=== PATIENT | female | born 1960 | race Two or more races ===

== ENCOUNTER → 2023-07-17 06:00 | Outpatient (CLI) | payer OTHER ==
[~2023-07-17] VITALS: Ht 160 cm; Wt 69.9 kg
[~2023-07-17 06:00] MED LIST: ANASTROZOLE1 MG PO; ELIQUIS5 MG PO; GLIPIZIDE10 MG PO; INVOKAMET 150-1 EACH PO; TOPROL XL100 M1 PO; ZESTRIL10 M1 PO
== END | disposition home or self-care (01) ==
LOC: LAB 06:00 → SURH 07-22 10:30 → EDSTATUS 07-22 10:30 → SURH 07-22 19:00
PROVIDERS: ATTEND Colon & Rectal Surgery
DX: Z03.818 Encounter for observation for suspected exposure to other biological agents ruled out (principal); Z20.822 Contact with and (suspected) exposure to COVID-19; K92.1 Melena; K57.32 Diverticulitis of large intestine without perforation or abscess without bleeding

== ENCOUNTER 2023-10-14 10:22 | Inpatient (IN) | payer OTHER ==
[~2023-10-14] VITALS: Ht 160 cm; Wt 69.9 kg
[2023-10-21] MEDS ORDERED: ROSUVASTATIN CA20 MG (13:10)
[2023-10-21] MEDS ORDERED: DULOXETINE HCL30 MG (13:10)
[2023-10-21] MEDS ORDERED: ISOSORBIDE MONO10 MG (13:10)
[2023-10-21 16:33] LABS: HEMATOCRIT 38.7 % (36.0-45.00); MEAN CELL VOLUME 94.7 fL (80.00-100.00); MEAN CORPUSCULAR HEMOGLOBIN 31.8 pg (27.00-32.0); MEAN CORPUSCULAR HGB CONC 33.5 g/dl (32.0-36.0); PLATELET COUNT 227 K/uL (150-450); RED BLOOD COUNT 4.09 M/uL (4.00-6.00); RED CELL DISTRIBUTION WIDTH 13.3 % (11.5-14.5)
[2023-10-21 20:03] LABS: ABG PH 7.382 (7.35-7.45); ABG PO2 77.1 mmHg (80-100); ABG pCO2 37.8 mmHg (35-45); BASE EXCESS -2.7 mmol/l; BICARBONATE 21.9 mmol/l (23-25); SaO2 94.8 %; Tco2 23.1 mmol/l; allen test SATISFACTORY; o2 21 %; puncture site RADIAL RIGHT
[2023-10-22 06:45] LABS: HEMATOCRIT 35.5 % (36.0-45.00); HEMOGLOBIN 12.1 g/dL (12.0-15.00); MEAN CELL VOLUME 94.6 fL (80.00-100.00); MEAN CORPUSCULAR HEMOGLOBIN 32.4 pg (27.00-32.0); MEAN CORPUSCULAR HGB CONC 34.3 g/dl (32.0-36.0); PLATELET COUNT 198 K/uL (150-450); RED BLOOD COUNT 3.75 M/uL (4.00-6.00); RED CELL DISTRIBUTION WIDTH 13.4 % (11.5-14.5)
[2023-10-22 07:09] LABS: CALCIUM 8.2 mg/dL (8.5-10.1); CREATININE SERUM 0.82 mg/dL (0.55-1.02); GFR 69.96; MAGNESIUM 1.8 mg/dL (1.8-2.4); PHOSPHOROUS 3.8 mg/dL (2.5-4.9); POTASSIUM 4.06 mEq/L (3.5-5.1)
[2023-10-23 07:01] LABS: HEMATOCRIT 34.7 % (36.0-45.00); HEMOGLOBIN 11.6 g/dL (12.0-15.00); MEAN CELL VOLUME 93.3 fL (80.00-100.00); MEAN CORPUSCULAR HEMOGLOBIN 31.3 pg (27.00-32.0); MEAN CORPUSCULAR HGB CONC 33.5 g/dl (32.0-36.0); PLATELET COUNT 196 K/uL (150-450); RED BLOOD COUNT 3.72 M/uL (4.00-6.00); RED CELL DISTRIBUTION WIDTH 13.3 % (11.5-14.5)
[2023-10-23 07:06] LABS: CALCIUM 8.5 mg/dL (8.5-10.1); CREATININE SERUM 0.88 mg/dL (0.55-1.02); GFR 64.49; MAGNESIUM 2.2 mg/dL (1.8-2.4); PHOSPHOROUS 2.5 mg/dL (2.5-4.9); POTASSIUM 3.57 mEq/L (3.5-5.1)
[2023-10-24] MEDS ORDERED: ACETAMINOPHEN500 M2 PO (09:53)
[2023-10-24] MEDS ORDERED: NEURONTIN300 MG PO (09:53)
== END 2023-10-24 11:04 | disposition home or self-care (01) | DRG 331 ==
LOC: SURG 11:45 → O/R 10-21 11:52 → SURH 10-21 15:23
PROVIDERS: Internal Medicine Geriatric Medicine; ADMIT Colon & Rectal Surgery; ATTEND Colon & Rectal Surgery
PROC: 0DBP4ZZ Excision of Rectum, Percutaneous Endoscopic Approach (ICD-10-PCS; 2023-10-21)
PROC: 0DJD8ZZ Inspection of Lower Intestinal Tract, Via Natural or Artificial Opening Endoscopic (ICD-10-PCS; 2023-10-21)
PROC: 4A12X4Z Monitoring of Cardiac Electrical Activity, External Approach (ICD-10-PCS; 2023-10-21)
PROC: 0DTN4ZZ Resection of Sigmoid Colon, Percutaneous Endoscopic Approach (ICD-10-PCS; principal; 2023-10-21 17:00)
DX: K57.32 Diverticulitis of large intestine without perforation or abscess without bleeding (principal); Z20.822 Contact with and (suspected) exposure to COVID-19; I11.9 Hypertensive heart disease without heart failure; E11.9 Type 2 diabetes mellitus without complications; Z86.718 Personal history of other venous thrombosis and embolism; G47.30 Sleep apnea, unspecified